=== PATIENT | male | born 1960 | race Caucasian/White ===

== ENCOUNTER 2020-12-20 21:24 | Emergency (ER) | payer BC ==
[2020-12-20] MEDS ORDERED: fentaNYL 50 MCG/ML SDV IVPUSH ONE ×2 (21:31→23:00)
[2020-12-20] MEDS ORDERED: Sodium Chloride 0.9% 10 ML Syringe FLUSH PRN (21:31)
[2020-12-20] MEDS ORDERED: Sodium Chloride 0.9% 2.5 ML Syringe FLUSH PRN (21:31)
[2020-12-20] MEDS ORDERED: Ondansetron 4 MG/2 ML SDV IVPUSH ONE (21:31)
--- NOTE | 2020-12-20 21:56 | EDM.PDOC ---
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 Patient denies any head trauma or loss of consciousness. Patient denies any pain to his knee or ankle. Patient denies any pain to any other extremity other than his right hip. Patient denies any recent fevers, shakes, chills, nausea, vomiting, diarrhea, dysuria, frequency, urgency, chest pain, shortness of breath, abdominal pain. Patient currently is not on any medications other than medicine for hypertension. Patient reports no anticoagulant medications. Patient reports that he has been unable to weight- bear on his right hip and required to have his son and friend helped him into the car and drove him approximately 2 hours here. Review of systems: As per history of present illness and below otherwise all systems reviewed and negative. Past medical history: As per history of present illness and as reviewed below otherwise noncontributory. Surgical history: As per history of present illness and as reviewed below otherwise noncontributory. Social history: No reported history of drug abuse. Family history: As per history of present illness and as reviewed below otherwise noncontributory. Physical exam: This patient was seen and evaluated during the 2019 SARS-CoV-2 novel coronavirus pandemic period. Community viral transmission is ongoing at time of this encounter and the emergency department is operating under pandemic response procedures. Constitutional: Patient is oriented to person, place, and time. Appears well- developed and well-nourished. No distress. HEENT: Moist mucous membranes Head: Normocephalic and atraumatic Eyes: Right eye exhibits no discharge. Left eye exhibits no discharge. No scleral icterus Neck: Normal range of motion. No tracheal deviation present. Cardiovascular: Normal rate and regular rhythm. Pulmonary: Effort normal, no respiratory distress. Abdominal: No distention Musculoskeletal: Normal range of motion Neurologic: Alert and oriented to person, place and time. Skin: [place], warm and dry. Psychiatric: Normal mood and affect. Behavior is normal. Judgment and thought content normal. Nursing note and vital signs have been reviewed Patient has no C-spine T-spine or L-spine tenderness to palpation. Patient has no left upper or right upper quadrant tenderness to palpation. Patient has no crepitus to palpation to the anterior chest wall. Patient is neurologically intact. Patient does not present with any signs or or symptoms that would be consistent with acute intracranial, intra-abdominal, intrathoracic, or long bone injury. All long bones have been palpated and range of motion been performed and there is no evidence of any acute pathology. As above except for tenderness palpation to his right hip. Patient has been unable to weight-bear at all to his right hip. Diagnostics: Chest x-ray, CBC, CMP, INR, UA, EKG, right hip x-ray and pelvis Therapeutics: Fentanyl 100 mics IV, Zofran, NSS Fentanyl 100 mcg IV x2 Assessment and plan: 60-year-old gentleman who presents ER today secondary to injury to his right hip. On patient CT he does have an acute nondisplaced fracture of the inferior right pubic ramus. Patient has a comminuted minimally displaced fracture of the lateral aspect of the right superior pubic ramus with involvement of the anterior acetabular column and anterior articular surface of the acetabulum. Comminuted minimally displaced fracture of the right acetabular roof and posterior acetabulum with a component of the fracture extending superiorly and posteriorly in the ileum to the anterior margin of the right sacroiliac joint. Patient has hemorrhagic thickening of the right obturator internus muscle. Moderate amount of pelvic hemorrhage anterior to the urinary bladder along the right pelvic sidewall mildly compressing the bladder. Patient has remained hemodynamically stable here in the ED. I have discussed with the patient the results of the need to transfer for definitive management. I have spoken to Dr. Garcia who is orthopedic surgeon at [facility] and at this time he does not feel comfortable caring for an acetabular fracture and recommended calling [facility] to see if there was a orthopedic surgeon who can take care of acetabular fracture. I discussed the case with Dr. Moreno at [facility] and he has reviewed the CT scan. He does not feel comfortable taking care of this acetabular fracture and reports that the patient will need an acetabular specialist. He recommended that I call [facility] for this. I have discussed the case with Dr. mathew who is the hospitalist at [facility] and he is agreed to accept patient for transfer and will have orthopedic surgery at [facility] evaluate patient. I have discussed this plan with the patient and he is in agreement. Definitive disposition and diagnosis as appropriate pending reevaluation and review of above. Right Hip Pain Score (Numeric/FACES): 10 - Related Data Allergies Allergy/AdvReac Type Severity Reaction Status Date / Time penicillin Allergy Cannot Verified 12/20/20 21:46 Remember Home Meds: Home Meds Fish Oil/[place]-3 Fatty Acids [Fish Oil 1,000 MG] 1 tab PO DAILY 01/14/15 [History] Ascorbic Acid [Vitamin C] 1,000 mg PO DAILY 12/20/20 [History] Calcium Carb, Citrate/Vit D3 [Calcium + D3 ER Tablet] DAILY 12/20/20 [History] Cholecalciferol (Vitamin D3) [Vitamin D3] 5,000 unit PO DAILY 12/20/20 [History] Furosemide [Lasix] 20 mg PO DAILY 12/20/20 [History] Lactulose [Cephulac] 20 gm PO 12/20/20 [History] Omeprazole 40 mg PO DAILY 12/20/20 [History] Rifaximin [Xifaxan] 550 mg PO BID 12/20/20 [History] Tamsulosin [Tamsulosin 24 Hr] 0.4 mg PO 12/20/20 [History] Zinc 50 mg PO BID 12/20/20 [History] buPROPion HCL [Wellbutrin Xl] 150 mg PO 12/20/20 [History] lisinopriL [Lisinopril] 20 mg PO 12/20/20 [History] Past Medical History Other HEENT History: New diagnosis "Nasal Polyps" Other Cardiovascular History: Due to Shortness of breath, they sent me to [facility] for Angiogram findings ok, discovered "Nasal Polyps" Other Respiratory History: With current doctoring feel it is due to Nasal Polyps Other Gastrointestinal History: hx: colon polyps Other Genitourinary History: Hx: Kidney stone x 1 Other Musculoskeletal History: Fracture to Left wrist "told still broken" Other Neuro History: "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 Potter Review of Systems - Review of Systems Review Of Systems: See Below ED EXAM, GENERAL - Physical Exam Exam: See Below #1 Interpretation EKG Interpretation Comments: EKG: As interpreted by ER physician: [place]: Nonspecific ST-T wave abnormalities Normal axis No evidence of ST elevation TX Normal sinus rhythm heart rate of 71 Course - Vital Signs Last Recorded V/S: Last Vital Signs Temp 97.5 F 12/20/20 21:35 Pulse 75 12/21/20 03:45 Resp 16 12/21/20 03:45 BP 109/63 12/21/20 03:45 Pulse Ox 97 12/21/20 03:45 - Orders/Labs/Meds Orders: Active Orders 24 hr Category Date Time Status Insert Urinary Catheter [OM.PC] Q24H Care 12/21/20 04:00 Ordered Saline Lock Insert [OM.PC] Stat Oth 12/20/20 21:31 Ordered Labs: Laboratory Tests 12/20/20 12/20/20 12/20/20 Range/Units 21:38 21:38 22:10 WBC 12.48 H (4.0-11.0) K/uL RBC 4.66 (4.50-5.90) M/uL Hgb 14.9 (13.0-17.0) g/dL Hct 42.3 (38.0-50.0) % MCV 90.8 (80.0-98.0) fL MCH 32.0 (27.0-32.0) pg MCHC 35.2 (31.0-37.0) g/dL RDW Std Deviation 43.2 (28.0-62.0) fl RDW Coeff of Chilo 13 (11.0-15.0) % Plt Count 131 L (150-400) K/uL MPV 11.50 (7.40-12.00) fL Neut % (Auto) 80.4 H (48.0-80.0) % Lymph % (Auto) 9.3 L (16.0-40.0) % Meagher % (Auto) 9.1 (0.0-15.0) % Eos % (Auto) 1.0 (0.0-7.0) % Baso % (Auto) 0.2 (0.0-1.5) % Neut # (Auto) 10.0 H (1.4-5.7) K/uL Lymph # (Auto) 1.2 (0.6-2.4) K/uL Meagher # (Auto) 1.1 H (0.0-0.8) K/uL Eos # (Auto) 0.1 (0.0-0.7) K/uL Baso # (Auto) 0.0 (0.0-0.1) K/uL Nucleated RBC % 0.0 /100WBC Nucleated RBCs # 0 K/uL INR 1.17 APTT 21.2 (18.6-31.3) SEC Sodium 141 (136-148) mmol/L Potassium 3.5 (3.5-5.1) mmol/L Chloride 106 (98-107) mmol/L Carbon Dioxide 21.3 (21.0-32.0) mmol/L BUN 15 (7.0-18.0) mg/dL Creatinine 0.9 (0.8-1.3) mg/dL Est Cr Clr Drug Dosing 96.18 mL/min Estimated GFR (MDRD) > 60.0 ml/min Glucose 159 H (74-106) mg/dL Calcium 8.2 L (8.5-10.1) mg/dL Total Bilirubin 0.8 (0.2-1.0) mg/dL AST 35 (15-37) IU/L ALT 34 (14-63) IU/L Alkaline Phosphatase 162 H (46-116) U/L Total Protein 6.8 (6.4-8.2) g/dL Albumin 3.4 (3.4-5.0) g/dL Globulin 3.4 (2.6-4.0) g/dL Albumin/Globulin Ratio 1.0 (0.9-1.6) Urine Color Urine Appearance Urine pH (5.0-8.0) Ur Specific [place] (1.001-1.035) Urine Protein (NEGATIVE) mg/dL Urine Glucose (UA) (NEGATIVE) mg/dL Urine Ketones (NEGATIVE) mg/dL Urine Occult Blood (NEGATIVE) Urine Nitrite (NEGATIVE) Urine Bilirubin (NEGATIVE) Urine Urobilinogen (<2.0) EU/dL Ur Leukocyte Esterase (NEGATIVE) Urine RBC (0-2/HPF) Urine WBC (0-5/HPF) Ur Epithelial Cells (NONE-FEW) Urine Bacteria (NEGATIVE) Urine Mucus (NONE-MOD) Urine Sperm (NEGATIVE) 12/21/20 Range/Units 03:15 WBC (4.0-11.0) K/uL RBC (4.50-5.90) M/uL Hgb (13.0-17.0) g/dL Hct (38.0-50.0) % MCV (80.0-98.0) fL MCH (27.0-32.0) pg MCHC (31.0-37.0) g/dL RDW Std Deviation (28.0-62.0) fl RDW Coeff of Chilo (11.0-15.0) % Plt Count (150-400) K/uL MPV (7.40-12.00) fL Neut % (Auto) (48.0-80.0) % Lymph % (Auto) (16.0-40.0) % Meagher % (Auto) (0.0-15.0) % Eos % (Auto) (0.0-7.0) % Baso % (Auto) (0.0-1.5) % Neut # (Auto) (1.4-5.7) K/uL Lymph # (Auto) (0.6-2.4) K/uL Meagher # (Auto) (0.0-0.8) K/uL Eos # (Auto) (0.0-0.7) K/uL Baso # (Auto) (0.0-0.1) K/uL Nucleated RBC % /100WBC Nucleated RBCs # K/uL INR APTT (18.6-31.3) SEC Sodium (136-148) mmol/L Potassium (3.5-5.1) mmol/L Chloride (98-107) mmol/L Carbon Dioxide (21.0-32.0) mmol/L BUN (7.0-18.0) mg/dL Creatinine (0.8-1.3) mg/dL Est Cr Clr Drug Dosing mL/min Estimated GFR (MDRD) ml/min Glucose (74-106) mg/dL Calcium (8.5-10.1) mg/dL Total Bilirubin (0.2-1.0) mg/dL AST (15-37) IU/L ALT (14-63) IU/L Alkaline Phosphatase (46-116) U/L Total Protein (6.4-8.2) g/dL Albumin (3.4-5.0) g/dL Globulin (2.6-4.0) g/dL Albumin/Globulin Ratio (0.9-1.6) Urine Color DARK YELLOW Urine Appearance SLT CLOUDY Urine pH 5.5 (5.0-8.0) Ur Specific [place] >= 1.030 (1.001-1.035) Urine Protein 30 H (NEGATIVE) mg/dL Urine Glucose (UA) NEGATIVE (NEGATIVE) mg/dL Urine Ketones NEGATIVE (NEGATIVE) mg/dL Urine Occult Blood TRACE-INTACT H (NEGATIVE) Urine Nitrite NEGATIVE (NEGATIVE) Urine Bilirubin NEGATIVE (NEGATIVE) Urine Urobilinogen 0.2 (<2.0) EU/dL Ur Leukocyte Esterase NEGATIVE (NEGATIVE) Urine RBC 0-3 (0-2/HPF) Urine WBC 0-3 (0-5/HPF) Ur Epithelial Cells OCCASIONAL (NONE-FEW) Urine Bacteria FEW (NEGATIVE) Urine Mucus LIGHT (NONE-MOD) Urine Sperm MODERATE (NEGATIVE) Meds: Medications Discontinued Medications Generic Name Dose Route Start Last Admin Trade Name Freq PRN Reason Stop Dose Admin Fentanyl 100 mcg 12/20/20 21:31 12/20/20 21:41 Fentanyl 50 Mcg/Ml Sdv IVPUSH 12/20/20 21:32 100 mcg ONETIME ONE Administration Fentanyl 100 mcg 12/20/20 23:00 12/20/20 23:05 Fentanyl 50 Mcg/Ml Sdv IVPUSH 12/20/20 23:01 100 mcg ONETIME ONE Administration Fentanyl 100 mcg 12/21/20 02:25 12/21/20 02:34 Fentanyl 50 Mcg/Ml Sdv IVPUSH 12/21/20 02:26 100 mcg ONETIME ONE Administration Ondansetron HCl 4 mg 12/20/20 21:31 12/20/20 21:41 Ondansetron 4 Mg/2 Ml Sdv IVPUSH 12/20/20 21:32 4 mg ONETIME ONE Administration Sodium Chloride 10 ml 12/20/20 21:31 12/20/20 21:41 Sodium Chloride 0.9% 10 Ml Syringe FLUSH 10 ml ASDIRECTED PRN Administration Keep Vein Open Sodium Chloride 2.5 ml 12/20/20 21:31 12/20/20 21:41 Sodium Chloride 0.9% 2.5 Ml Syringe FLUSH 2.5 ml ASDIRECTED PRN Administration Keep Vein Open Departure - Departure Time of Disposition: 02:32 Disposition: Home, Self-Care 01 Condition: Good Clinical Impression: Right acetabular fracture Qualifiers: Encounter type: initial encounter Sublocation of acetabulum: unspecified portion of acetabulum Fracture type: closed Fracture alignment: nondisplaced Qualified Code(s): S32.401A - Unspecified fracture of right acetabulum, initial encounter for closed fracture Closed right hip fracture Qualifiers: Encounter type: initial encounter Qualified Code(s): S72.001A - Fracture of unspecified part of neck of right femur, initial encounter for closed fracture - Discharge Information Referrals: PCP,None [Primary Care Provider] - Forms: ED Department Discharge Sepsis Event Note (ED) - Evaluation Sepsis Screening Result: No Definite Risk - Focused Exam Vital Signs: Vital Signs Temp Pulse Resp BP Pulse Ox 12/21/20 03:45 75 16 109/63 97 12/21/20 02:35 78 17 117/68 96 12/21/20 00:59 81 18 113/69 96 12/20/20 23:51 78 17 116/69 96 12/20/20 21:35 97.5 F 84 19 125/70 96 - My Orders Last 24 Hours: My Active Orders 12/20/20 21:31 Saline Lock Insert [OM.PC] Stat 12/21/20 04:00 Insert Urinary Catheter [OM.PC] Q24H - Assessment/Plan Last 24 Hours: My Active Orders 12/20/20 21:31 Saline Lock Insert [OM.PC] Stat 12/21/20 04:00 Insert Urinary Catheter [OM.PC] Q24H
[2020-12-20 22:20] LABS: BLOOD UREA NITROGEN,BUN 15 mg/dL (7.0-18.0); CARBON DIOXIDE,CO2 21.3 mmol/L (21.0-32.0); CHLORIDE,CL 106 mmol/L (98-107); GLUCOSE RANDOM 159 mg/dL (74-106); POTASSIUM,K 3.5 mmol/L (3.5-5.1); SODIUM,NA 141 mmol/L (136-148)
--- NOTE | 2020-12-20 23:57 | CR ---
INDICATION: Fall, right hip pain. TECHNIQUE: X-ray right hip, 2 views and a single view of the pelvis. COMPARISON: None available. FINDINGS: There is a lucent line which extends to the acetabulum. And inferior pubic rami, possible cortical step-off of the superior pubic rami on the right. The right femur appears intact. The joint spaces are preserved. No radiopaque foreign body is seen. IMPRESSION: Acute fracture of the right inferior pubic rami and suspect additional fractures of the superior pubic rami and acetabulum on the right. Findings could be confirmed with CT. Dictated by Jumana Harvey MD @ 12/20/2020 11:55:[address] Jumana Harvey @ Dec 20 2020 11:55PM
--- NOTE | 2020-12-20 23:57 | CR ---
INDICATION: Fall, pain. TECHNIQUE: X-ray chest, 1 view. COMPARISON: None available. FINDINGS: Evaluation is limited due to overlapping soft tissue. The heart is normal in size, given technique. The pulmonary vasculature is within normal limits. The lungs are clear. No pneumothorax is visualized. IMPRESSION: No acute process. Dictated by Jumana Harvey MD @ 12/20/2020 11:56:[address] Jumana Harvey @ Dec 20 2020 11:56PM
--- NOTE | 2020-12-21 01:44 | CT ---
HISTORY: Pain after falling injury. FINDINGS: The pelvis was studied in the axial plane. Sagittal and coronal 2 dimensional reconstructions were then performed. There is an extensively comminuted fracture of the right iliac bone in the periacetabular region with multiple points of intra-articular extension involving the anterior, central and posterior portions of the acetabulum. Largest articular surface gap is on the order of 7-8 mm. There is a vertical component extending superiorly towards the sacroiliac joint as well. There is also a fracture component involving the adjacent right pubic ramus. Nondisplaced fracture is noted of the midportion of the right ischial ramus. There is extensive edema and hemorrhage in the right pelvic sidewall with additional blood and hematoma extending anteriorly across the midline anterior to the bladder. There is also enlargement of the obturator internus muscle probably due to hemorrhage. This slightly displaces the bladder towards the left. No proximal femoral fracture is noted. No findings for hip joint dislocation. Degenerative disc disease is noted of the lower lumbar spine. IMPRESSION: Severely comminuted intra-articular fracture in the right periacetabular region as discussed. Additional fractures are noted of the right pubic and ischial rami. Please note that all CT scans at this facility use dose modulation, iterative reconstruction, and/or weight-based dosing when appropriate to reduce radiation dose to as low as reasonably achievable. Dictated by Ankush Arana MD @ 12/21/2020 7:12:[address] Ankush Arana @ Dec 21 2020 7:12AM
[2020-12-21] MEDS ORDERED: fentaNYL 50 MCG/ML SDV IVPUSH ONE (02:25)
[2020-12-21 03:46] VITALS: BP 109/63; PULSE 75
== END 2020-12-21 04:12 | disposition home or self-care (01) ==
LOC: MW.ED 21:24
DX: S32.491A Other specified fracture of right acetabulum, initial encounter for closed fracture (principal); S72.091A Other fracture of head and neck of right femur, initial encounter for closed fracture; Z88.0 Allergy status to penicillin; Z79.899 Other long term (current) drug therapy; W18.09XA Striking against other object with subsequent fall, initial encounter
CPT/HCPCS: 36415; 51702; 71045; 72192; 73502; 80053; 81001; 85025; 85610; 85730; 93005; 96374; 96375; 96376; 99285; J2405; J3010